=== PATIENT | male | born 1980 | race Caucasian/White ===

== ENCOUNTER 2016-04-02 08:10 | Emergency (ER) | payer MEDICAID ==
[2016-04-02] MEDS ORDERED: PROMETHAZINE HCL 25 MG/ML VIAL IM ONE (09:36)
[2016-04-02] MEDS ORDERED: HYDROMORPHONE HCL 1 MG/ML CPJ IM ONE (09:36)
[2016-04-02] MEDS ORDERED: KETOROLAC 30 MG/ML VIAL IM ONE (09:36)
[2016-04-02] MEDS ORDERED: ORPHENADRINE CITRATE 60MG/2ML VIAL IM ONE (09:36)
--- NOTE | 2016-04-02 09:46 | Emergency Department Record ---
History of Present Illness - General Chief complaint: Extremity Problem Stated complaint: RT FOREARM PAIN/SWELLING Time Seen by Provider: 04/02/16 08:35 Source: Patient Mode of Arrival: Ambulatory Limitations: No limitations - History of Present Illness Initial comments: pt fell a week ago and is quite sure he broke his arm and he also twisted his back. he continues to have pain in both. no numbness. back pain does go down r leg and pt does have ahx of problem discs. pt having no issues with bowel or bladder. MD Complaint: Extremity pain, Extremity swelling, Other (back pain) Onset/Timin -: Days(s) Location: Right, Arm History of Same: No (HX of low back pain) Radiation: Distal Severity scale (1-10): 8 Quality: Aching, Sharp Consistency: Constant Improves with: Nothing Worsens with: Weight bearing Associated Symptoms: Denies other symptoms - Related Data Previous Rx's Medication Instructions Recorded Cyclobenzaprine HCl [Flexeril] 10 mg PO TID #14 tablet 04/02/16 Hydrocodone/Acetaminophen [[place] 1 tab PO Q6H PRN #7 tab 04/02/16 5mg/325mg] Ibuprofen [Motrin 600Mg] 600 mg PO Q6H #20 tablet 04/02/16 Allergies Allergy/AdvReac Type Severity Reaction Status Date / Time No Known Drug Allergies Allergy Verified 04/27/15 07:52 Travel Screening - Travel/Exposure Within Last 30 Days Have you traveled within the last 30 days?: No - Travel/Exposure Within Last Year Have you traveled outside the [place] in the last year?: No - Travel Symptoms Symptom Screening: None Review of Systems Reviewed: No additional complaints except as noted below Constitutional: Reports: As per HPI. Denies: Chills, Fever, Malaise, Night sweats, Weakness, Weight change Eyes: Reports: As per HPI. Denies: Eye discharge, Eye pain, Photophobia, Vision change ENT: Reports: As per HPI. Denies: Congestion, Dental pain, Ear pain, Epistaxis , Hearing loss, Throat pain Respiratory: Reports: As per HPI. Denies: Cough, Dyspnea, Hemoptysis, Stridor, Wheezes Cardiovascular: Reports: As per HPI. Denies: Arrhythmia, Chest pain, Dyspnea on exertion, Edema, Murmurs, Orthopnea, Palpitations, Paroxysmal nocturnal dyspnea, Rheumatic Fever, Syncope Endocrine: Reports: As per HPI. Denies: Fatigue, Heat or cold intolerance, Polydipsia, Polyuria Gastrointestinal: Reports: As per HPI. Denies: Abdominal pain, Constipation, Diarrhea, Hematemesis, Hematochezia, Melena, Nausea, Vomiting Genitourinary: Reports: As per HPI. Denies: Dysuria, Frequency, Hematuria, Incontinence, Retention, Testicular pain, Testicular mass, Urgency Musculoskeletal: Reports: As per HPI. Denies: Arthralgia, Back pain, Gout, Joint swelling, Myalgia, Neck pain Skin: Reports: As per HPI. Denies: Bruising, Change in color, Change in hair/ nails, Lesions, Pruritus, Rash Neurological: Reports: As per HPI. Denies: Abnormal gait, Confusion, Headache, Numbness, Paresthesias, Seizure, Tingling, Tremors, Vertigo, Weakness Psychiatric: Reports: As per HPI. Denies: Anxiety, Auditory hallucinations, Depression, Homicidal thoughts, Suicidal thoughts, Visual hallucinations Hematological/Lymphatic: Reports: As per HPI. Denies: Anemia, Blood Clots, Easy bleeding, Easy bruising, Swollen glands Past Medical History - SOCIAL HISTORY Smoking Status: Light tobacco smoker (<10/day) Alcohol Use: Rare Drug Use: None - RESPIRATORY Hx Respiratory Disorders: No - CARDIOVASCULAR Hx Cardio Disorders: No - NEURO Hx Neuro Disorders: No - GI Hx GI Disorders: No - Hx Genitourinary Disorders: No - ENDOCRINE Hx Endocrine Disorders: No Hx Diabetes: No Hx Thyroid Disease: No - MUSCULOSKELETAL Hx Musculoskeletal Disorders: Yes Hx Back Injury: Yes - PSYCH Hx Psych Problems: Yes Hx Anxiety: Yes Hx Depression: Yes - HEMATOLOGY/ONCOLOGY Hx Hematology/Oncology Disorders: No Family Medical History Any Significant Family History?: Yes Hx Diabetes: Father Hx Heart Disease: Father, Grandparents Physical Exam - General General Appearance: Alert, Oriented x3, Cooperative, Mild distress - Head Head exam: Normal inspection - Eye Eye exam: Normal appearance, PERRL, EOMI Pupils: Normal accommodation - ENT ENT exam: Normal exam, Mucous membranes moist, Normal external ear exam, Normal orophraynx Ear exam: Normal external inspection. negative: External canal tenderness Nasal Exam: Normal inspection. negative: Discharge, Sinus tenderness Mouth exam: Normal external inspection, Tongue normal Teeth exam: Normal inspection. negative: Dental caries Throat exam: Normal inspection. negative: Tonsillar erythema, Tonsillar exudate - Neck Neck exam: Normal inspection, Full ROM. negative: Tenderness - Respiratory Respiratory exam: Normal lung sounds bilaterally. negative: Respiratory distress - Cardiovascular Cardiovascular Exam: Regular rate, Normal rhythm, Normal heart sounds - GI/Abdominal GI/Abdominal exam: Soft, Normal bowel sounds. negative: Tenderness - Rectal Rectal exam: Deferred - exam: Deferred - Extremities Extremities exam: Full ROM, Normal capillary refill, Tenderness - Back Back exam: Reports: Muscle spasm, Paraspinal tenderness, Tenderness. Denies: Full ROM, Rash noted Image of Body Front/Back: 1 - tender 2 - tender w mild swelling - Neurological Neurological exam: Alert, CN II-XII intact, Normal gait, Oriented X3 - Psychiatric Psychiatric exam: Normal affect, Normal mood - Skin Skin exam: Dry, Intact, Normal color, Warm Course Vital Signs 04/02/16 08:26 Temperature 97.5 F L Pulse Rate [ 52 L Left] Respiratory 14 Rate Blood Pressure 185/125 [Left Arm] Pulse Ox 97 Disposition Disposition: Discharge Clinical Impression: Lumbar radiculopathy Contusion of right upper extremity Qualifiers: Encounter type: initial encounter Qualified Code(s): S40.021A - Contusion of right upper arm, initial encounter Disposition: Home, Self-Care Condition: (1) Good Instructions: Contusion in Adults (ED), Lumbar Radiculopathy (ED) Additional Instructions: follow up with family doctor. return sooner if worse. Prescriptions: Cyclobenzaprine HCl [Flexeril] 10 mg PO TID #14 tablet Ibuprofen [Motrin 600Mg] 600 mg PO Q6H #20 tablet Hydrocodone/Acetaminophen [[place] 5mg/325mg] 1 tab PO Q6H PRN #7 tab PRN Reason: Pain - General
--- NOTE | 2016-04-05 08:48 | RADIOLOGY REPORT ---
EXAM: RIGHT ELBOW, THREE VIEWS HISTORY: RIGHT ARM PAIN FOR FIVE DAYS. INJURY. TECHNIQUE: Three views of the right elbow were obtained. Comparison: None. Encounter: Initial. FINDINGS: There is normal bone mineralization. No acute fracture, dislocation , or destructive bone lesion is seen. There is mild to moderate marginal spurring of the medial aspect of the coronoid process of the ulna. The articular relations are otherwise maintained. No anterior nor posterior fat pad sign is seen. IMPRESSION: 1. NO ACUTE FRACTURE NOR DISLOCATION. 2. DEGENERATIVE SPURRING OF THE MEDIAL COMPARTMENT. JOB NUMBER: [id number] MTDD
--- NOTE | 2016-04-05 08:53 | RADIOLOGY REPORT ---
EXAM: LUMBAR SPINE COMPLETE HISTORY: LOWER BACK PAIN FOR FIVE DAYS. TECHNIQUE: AP, lateral and both oblique views of the lumbar spine were obtained as well as spot lateral view of the lumbosacral junction. Comparison: Lumbar spine AP and lateral views dated 04/27/15. FINDINGS: There is normal bone mineralization. There are five non-rib bearing lumbar type vertebra. The vertebral bodies are grossly normal in alignment and height. Disk space narrowing and marginal end plate spurring redemonstrated at the L4-L5 and L5-S1 levels. Minimal anterior marginal end plate spurring is also suggested at the L2-L3 and L3-L4 levels. Multilevel facet arthropathy is identified, mild to moderate in degree, most pronounced at the lower lumbar levels. IMPRESSION: NO ACUTE OSSEOUS OR LIGAMENTOUS ABNORMALITY. MULTILEVEL DEGENERATIVE CHANGES, DETAILED ABOVE, NOT SIGNIFICANTLY CHANGED IN THE INTERVAL. JOB NUMBER: [id number] MTDD
== END 2016-04-02 10:30 | disposition home or self-care (01) ==
LOC: ER 08:10
DX: S40.021A Contusion of right upper arm, initial encounter (principal); M54.16 Radiculopathy, lumbar region; W19.XXXA Unspecified fall, initial encounter
CPT/HCPCS: 99283; 96372; 99284; 73080; 72110; J1885; J1170; J2360; J2550